=== PATIENT | male | born 1950 | race Caucasian/White ===

== ENCOUNTER → 2017-12-08 | Outpatient (CLI) | payer MEDICARE, BC ==
[~2017-12-08] MED LIST: ALLO100 PO; ANDROGEL; ASPI325 PO; CODASP30 PO; CYCL10 PO; DICL25ER; DICL75ER PO; ESCI20 PO; GEMF600; HYDACE5 PO; LOPE2C; OMEP20ER PO; OXYC10TA19; OXYC1TAB11 PO; ROSU10TA PO; RXHYDACE PO; ZOLP10 PO; [UNRECOGNIZED DRUG - OTHER]
== END ==
LOC: LAB SHORT 18:00 → LAB 18:00
DX: R19.7 Diarrhea, unspecified (principal)
CPT/HCPCS: 87015; 87045; 87046; 87205; 87899

== ENCOUNTER 2018-02-20 21:59 | Emergency (ER) | payer MEDICARE, BC ==
[~2018-02-20] VITALS: Ht 190.5 cm; Wt 90.7 kg
[2018-02-20] MEDS ORDERED: Pepcid40 MG PO (22:18)
[2018-02-20] MEDS ORDERED: Prednisone50 MG PO (22:18)
[2018-02-20] MEDS ORDERED: EPIPEN 2-P0.3 MG/0.3 IM (22:18)
== END 2018-02-20 23:10 | disposition home or self-care (01) ==
LOC: ER 21:59
DX: T63.461A Toxic effect of venom of wasps, accidental (unintentional), initial encounter (principal); K21.9 Gastro-esophageal reflux disease without esophagitis; Z91.030 Bee allergy status; Z79.899 Other long term (current) drug therapy; Z79.82 Long term (current) use of aspirin; Z87.891 Personal history of nicotine dependence
CPT/HCPCS: 99282; J1100

== ENCOUNTER → 2020-01-31 | Outpatient (CLI) | payer MEDICARE, BC ==
[~2020-01-31] MED LIST changes: +EPIPEN 2-P0.3 MG/0.3 IM; +Pepcid40 MG PO; +Prednisone50 MG PO
== END ==
LOC: LAB SHORT 13:03 → PLD 13:03
DX: L60.2 Onychogryphosis (principal); B35.1 Tinea unguium
CPT/HCPCS: 88305; 88312

== ENCOUNTER 2021-06-30 13:28 | Day surgery (SDC) | payer MEDICARE, BC ==
[~2021-06-30] VITALS: Ht 190.5 cm; Wt 93.4 kg
[~2021-06-30 13:28] MED LIST changes: +BACL10; +CITALOPRAM HBR10 MG; +CYCL10; +DEPO-TESTO200 MG/1 M; +DUTA.5; +PREG150; +PREG50; +Prozac40 MG; +TERB250
[2021-06-30] MEDS ORDERED: Cyclobenzaprine5 MG (14:06)
[2021-06-30] MEDS ORDERED: OXYC30ER (14:21)
--- NOTE | 2021-06-30 14:55 | NUR ---
06/30/21 1453 Kassidy Robles CHANGING TO PEDIATRIC SCOPE.
== END 2021-06-30 16:00 | disposition home or self-care (01) ==
LOC: ORSCSDS 13:28
PROVIDERS: Internal Medicine Gastroenterology
PROC: 0DBE8ZX Excision of Large Intestine, Via Natural or Artificial Opening Endoscopic, Diagnostic (ICD-10-PCS; principal; 2021-06-30 14:45)
DX: Z12.11 Encounter for screening for malignant neoplasm of colon (principal); Z87.19 Personal history of other diseases of the digestive system; K56.699 Other intestinal obstruction unspecified as to partial versus complete obstruction; K57.30 Diverticulosis of large intestine without perforation or abscess without bleeding; Z79.899 Other long term (current) drug therapy
CPT/HCPCS: 88305; J0330; J0461; J2250; J2405; J2704; J3010; J7120

== ENCOUNTER → 2022-11-03 | Outpatient (CLI) | payer MEDICARE, BC ==
[~2022-11-03] MED LIST changes: +Cyclobenzaprine5 MG; +OXYC30ER
== END | disposition home or self-care (01) ==
LOC: PLD 07:54 → LAB SHORT 07:54
DX: D18.01 Hemangioma of skin and subcutaneous tissue (principal)
CPT/HCPCS: 88305

== ENCOUNTER → 2023-05-26 | Outpatient (CLI) | payer MEDICARE, BC | LOC: LAB SHORT 14:48 → LAB 14:48 | DX: R30.0 Dysuria (principal) | CPT/HCPCS: 87086 ==

== ENCOUNTER → 2025-05-14 | Outpatient (CLI) | payer MEDICARE ==
[2025-05-18 12:36] LABS: 11-NOR-9-CARBOXY-THC,URN,QUANT <15 ng/mL
== END | disposition home or self-care (01) ==
LOC: LAB SHORT 11:40 → LAB 11:40
PROVIDERS: Family Medicine
DX: Z51.81 Encounter for therapeutic drug level monitoring (principal); Z79.899 Other long term (current) drug therapy
CPT/HCPCS: G0480